=== PATIENT | female | born 1980 | race Caucasian/White ===

== ENCOUNTER 2018-07-10 15:50 | Inpatient (IN) | payer SELFPAY ==
[~2018-07-10] VITALS: Ht 160 cm; Wt 78.0 kg
[2018-07-10 16:33] LABS: BASOPHIL % 0 % (0-2); RED CELL DISTRIBUTION WIDTH 15.6 % (11.5-14.5)
[2018-07-10 16:52] LABS: PLATELET COUNT 564 x10^3mcL (130-400)
[2018-07-10 17:02] LABS: ALKALINE PHOSPHATASE 196 U/L (46-116); ALT/SGPT 7 U/L (14-59); AST/SGOT 7 U/L (15-37); BILIRUBIN TOTAL 0.5 mg/dL (0.20-1.00); CALCIUM 9.4 mg/dL (8.5-10.1); CHLORIDE SERUM 94 mmol/L (98-107); GFR1 > 60 mL/min; POTASSIUM SERUM 4.9 mmol/L (3.5-5.1); SODIUM SERUM 129 mmol/L (136-145); TOTAL PROTEIN, SERUM 7.5 g/dL (6.4-8.2)
[2018-07-10 17:04] LABS: ALBUMIN 1.7 g/dL (3.4-5.0)
[2018-07-10 17:06] LABS: GLUCOSE SERUM 585 mg/dL (74-106)
[2018-07-10 18:07] LABS: MAGNESIUM 1.4 mg/dL (1.8-2.4); PHOSPHOROUS 3.4 mg/dL (2.5-4.9)
[2018-07-10 18:15] LABS: T3 TOTAL 0.66 ng/mL
[2018-07-10 18:18] LABS: FREE T4 1.2 ng/dL (0.76-1.46); FREE THYROXINE INDEX 2.5 ug/dL (1.4-4.5); T4(THYROXINE) 6.6 ug/dL (4.7-13.3)
[2018-07-10 19:23] VITALS: BP 132/72
[2018-07-10 20:15] LABS: CALCIUM 8.5 mg/dL (8.5-10.1); CARBON DIOXIDE 20.2 mmol/L (21-32); CHLORIDE SERUM 106 mmol/L (98-107); CREATININE SERUM 0.9 mg/dL (0.6-1.0); GFR1 > 60 mL/min; GLUCOSE SERUM 350 mg/dL (74-106); MAGNESIUM 1.4 mg/dL (1.8-2.4); POTASSIUM SERUM 3.4 mmol/L (3.5-5.1); SODIUM SERUM 140 mmol/L (136-145)
[2018-07-10 23:38] VITALS: BP 137/66
[2018-07-10 23:52] VITALS: Ht 160 cm; Wt 78.0 kg
[2018-07-11 01:00] LABS: CARBON DIOXIDE 20.3 mmol/L (21-32); CHLORIDE SERUM 106 mmol/L (98-107); CREATININE SERUM 0.6 mg/dL (0.6-1.0); GFR1 > 60 mL/min; GLUCOSE SERUM 179 mg/dL (74-106); MAGNESIUM 1.3 mg/dL (1.8-2.4); POTASSIUM SERUM 3.6 mmol/L (3.5-5.1); SODIUM SERUM 137 mmol/L (136-145)
[2018-07-11 04:18] VITALS: BP 135/69
[2018-07-11 05:35] LABS: CALCIUM 8.3 mg/dL (8.5-10.1); CARBON DIOXIDE 20.2 mmol/L (21-32); CHLORIDE SERUM 109 mmol/L (98-107); CREATININE SERUM 0.8 mg/dL (0.6-1.0); GFR1 > 60 mL/min; GLUCOSE SERUM 132 mg/dL (74-106); MAGNESIUM 1.4 mg/dL (1.8-2.4); SODIUM SERUM 141 mmol/L (136-145)
[2018-07-11 05:49] LABS: BASOPHIL % 0.3 % (0-2)
[2018-07-11 05:51] LABS: PLATELET COUNT 453 x10^3mcL (130-400); RED CELL DISTRIBUTION WIDTH 15.4 % (11.5-14.5)
[2018-07-11 07:41] VITALS: BP 129/73
[2018-07-11 18:23] VITALS: BP 152/83
[2018-07-11 20:26] VITALS: BP 147/79
[2018-07-11 21:10] LABS: UA SPECIFIC GRAVITY >=1.030 (1.005-1.035); microscopic required? YES; urine erythrocyte TRACE (NEGATIVE)
[2018-07-12] VITALS (7 sets, daily range): BP systolic 134–157; BP diastolic 71–84
[2018-07-12 07:35] LABS: BASOPHIL % 0 % (0-2); PLATELET COUNT 424 x10^3mcL (130-400); RED CELL DISTRIBUTION WIDTH 15.8 % (11.5-14.5)
[2018-07-12 07:43] LABS: CALCIUM 7.8 mg/dL (8.5-10.1); CARBON DIOXIDE 18.7 mmol/L (21-32); CHLORIDE SERUM 106 mmol/L (98-107); GFR1 > 60 mL/min; GLUCOSE SERUM 229 mg/dL (74-106); MAGNESIUM 1.5 mg/dL (1.8-2.4); PHOSPHOROUS 2.5 mg/dL (2.5-4.9); POTASSIUM SERUM 4.4 mmol/L (3.5-5.1); SODIUM SERUM 136 mmol/L (136-145)
[2018-07-13 05:20] VITALS: BP 154/80
[2018-07-13 06:54] LABS: CALCIUM 8.3 mg/dL (8.5-10.1); CARBON DIOXIDE 18.9 mmol/L (21-32); CHLORIDE SERUM 108 mmol/L (98-107); GFR1 > 60 mL/min; GLUCOSE SERUM 111 mg/dL (74-106); MAGNESIUM 1.5 mg/dL (1.8-2.4); PHOSPHOROUS 2.7 mg/dL (2.5-4.9); POTASSIUM SERUM 3.9 mmol/L (3.5-5.1); SODIUM SERUM 137 mmol/L (136-145)
[2018-07-13 08:03] LABS: PLATELET COUNT 446 x10^3mcL (130-400); RED CELL DISTRIBUTION WIDTH 16.9 % (11.5-14.5)
[2018-07-13 08:04] LABS: BASOPHIL % 5.9 % (0-2)
[2018-07-13 08:20] VITALS: BP 146/78
[2018-07-13 09:34] LABS: ALKALINE PHOSPHATASE 319 U/L (46-116); ALT/SGPT 19 U/L (14-59); AST/SGOT 15 U/L (15-37); BILIRUBIN TOTAL 0.3 mg/dL (0.20-1.00); CALCIUM 8.6 mg/dL (8.5-10.1); CARBON DIOXIDE 22.8 mmol/L (21-32); CHLORIDE SERUM 105 mmol/L (98-107); CREATININE SERUM 0.9 mg/dL (0.6-1.0); GFR1 > 60 mL/min; GLUCOSE SERUM 132 mg/dL (74-106); POTASSIUM SERUM 4.7 mmol/L (3.5-5.1); SODIUM SERUM 133 mmol/L (136-145)
[2018-07-13 09:43] LABS: ALBUMIN 1.2 g/dL (3.4-5.0); TOTAL PROTEIN, SERUM 6.1 g/dL (6.4-8.2)
[2018-07-13 10:57] LABS: rbc morphology (normal/abnorm) ABNORMAL (NORMAL)
[2018-07-13 12:00] VITALS: BP 157/85
[2018-07-13 14:37] LABS: BASOPHIL % 0.2 % (0-2)
[2018-07-13 14:41] LABS: PLATELET COUNT 452 x10^3mcL (130-400); RED CELL DISTRIBUTION WIDTH 17.6 % (11.5-14.5)
[2018-07-13 17:02] VITALS: BP 168/86
[2018-07-13 20:26] VITALS: BP 174/92
[2018-07-14 05:30] VITALS: BP 144/81
[2018-07-14 08:51] VITALS: BP 154/72
[2018-07-14 12:44] VITALS: BP 143/85
[2018-07-14] MEDS ORDERED: FER300 PO (16:14)
[2018-07-14] MEDS ORDERED: BACDS PO (16:14)
[2018-07-14] MEDS ORDERED: LEVEMIR100 U/M1 SC (16:15)
[2018-07-14] MEDS ORDERED: METFORMIN HCL1000 MG PO (16:15)
[2018-07-14 17:02] VITALS: BP 161/87
[2018-07-14 17:29] VITALS: BP 153/87
[2018-07-14 17:33] VITALS: BP 153/87
== END 2018-07-14 18:12 | disposition home or self-care (01) | DRG 871 ==
LOC: ED 15:50 → IC 17:41 → DU 17:41 → EDBEDREQSVC 17:43 → IC 19:11 → DU 07-11 15:00
PROVIDERS: Emergency Medicine; Family Medicine
PROC: 30233N1 Transfusion of Nonautologous Red Blood Cells into Peripheral Vein, Percutaneous Approach (ICD-10-PCS; principal; 2018-07-13)
PROC: 0Y9D3ZZ Drainage of Left Upper Leg, Percutaneous Approach (ICD-10-PCS; 2018-07-13)
PROC: BH48ZZZ Ultrasonography of Lower Extremity (ICD-10-PCS; 2018-07-13)
DX: A41.9 Sepsis, unspecified organism (principal); E11.10 Type 2 diabetes mellitus with ketoacidosis without coma; E43 Unspecified severe protein-calorie malnutrition; L03.116 Cellulitis of left lower limb; D68.59 Other primary thrombophilia; E87.1 Hypo-osmolality and hyponatremia; D50.9 Iron deficiency anemia, unspecified; E86.0 Dehydration; E83.42 Hypomagnesemia; Z68.30 Body mass index [BMI] 30.0-30.9, adult; Z82.49 Family history of ischemic heart disease and other diseases of the circulatory system; Z80.9 Family history of malignant neoplasm, unspecified; Z91.14 Patient's other noncompliance with medication regimen; Z79.84 Long term (current) use of oral hypoglycemic drugs
CPT/HCPCS: 36600; 82962; 83880; 84439; C1729; J0295; J1815; J1885; J2001; J2405; J2543; J3370; J3475; J3490; J7030; J7050; P9016; Q0092; Q0163

== ENCOUNTER 2018-07-31 22:47 | Inpatient (IN) | payer SELFPAY ==
[~2018-07-31] VITALS: Ht 160 cm; Wt 73.0 kg
[~2018-07-31 22:47] MED LIST: BACDS PO; FER300 PO; LEVEMIR100 U/M1 SC; METFORMIN HCL1000 MG PO
[2018-07-31 22:58] VITALS: Ht 160 cm; Wt 73.0 kg
[2018-08-01 00:01] LABS: BASOPHIL % 0.4 % (0-2)
[2018-08-01 00:02] LABS: RED CELL DISTRIBUTION WIDTH 17.6 % (11.5-14.5)
[2018-08-01 00:03] LABS: PLATELET COUNT 499 x10^3mcL (130-400)
[2018-08-01 00:07] LABS: BILIRUBIN TOTAL 0.2 mg/dL (0.20-1.00); CALCIUM 8.9 mg/dL (8.5-10.1); CARBON DIOXIDE 16.9 mmol/L (21-32); CREATININE SERUM 2.7 mg/dL (0.6-1.0); TOTAL PROTEIN, SERUM 8.1 g/dL (6.4-8.2)
[2018-08-01 00:10] LABS: ALBUMIN 2.7 g/dL (3.4-5.0)
[2018-08-01 00:14] LABS: POTASSIUM SERUM 6.3 mmol/L (3.5-5.1)
[2018-08-01] MEDS ORDERED: ASPIR 8181 MG PO (01:12)
[2018-08-01] MEDS ORDERED: HYDROCHLOROTHIA25 MG PO (01:12)
[2018-08-01] MEDS ORDERED: ZESTRIL5 MG PO (01:12)
[2018-08-01] MEDS ORDERED: GLIPIZIDE5 M3 PO (01:13)
[2018-08-01] MEDS ORDERED: METFORMIN HCL850 MG PO (01:14)
[2018-08-01] MEDS ORDERED: LIPI10 PO (01:14)
[2018-08-01 02:18] LABS: MAGNESIUM 1.3 mg/dL (1.8-2.4); PHOSPHOROUS 5.1 mg/dL (2.5-4.9)
[2018-08-01 02:24] LABS: CHOLESTEROL/HDL RATIO 4.8
[2018-08-01 02:31] LABS: T3 TOTAL 1.06 ng/mL
[2018-08-01 02:43] LABS: FREE T4 1.08 ng/dL (0.76-1.46); FREE THYROXINE INDEX 2.2 ug/dL (1.4-4.5); T4(THYROXINE) 7.3 ug/dL (4.7-13.3)
[2018-08-01 03:16] VITALS: BP 120/63
[2018-08-01 06:40] LABS: BASOPHIL % 0.4 % (0-2); PLATELET COUNT 397 x10^3mcL (130-400)
[2018-08-01 07:03] LABS: CALCIUM 8.4 mg/dL (8.5-10.1); CARBON DIOXIDE 16.4 mmol/L (21-32); CREATININE SERUM 2.5 mg/dL (0.6-1.0); MAGNESIUM 1.3 mg/dL (1.8-2.4); PHOSPHOROUS 4.5 mg/dL (2.5-4.9)
[2018-08-01 07:11] LABS: POTASSIUM SERUM 6.1 mmol/L (3.5-5.1)
[2018-08-01 10:22] VITALS: BP 112/63
[2018-08-01 12:28] LABS: CALCIUM 8.7 mg/dL (8.5-10.1); CARBON DIOXIDE 20.5 mmol/L (21-32); CREATININE SERUM 1.9 mg/dL (0.6-1.0)
[2018-08-01 13:11] LABS: POTASSIUM SERUM 6.8 mmol/L (3.5-5.1)
[2018-08-01 14:11] VITALS: BP 155/109
[2018-08-01 14:16] VITALS: BP 112/64
[2018-08-01 17:10] VITALS: BP 137/71
[2018-08-01 18:03] LABS: CALCIUM 8.7 mg/dL (8.5-10.1); CARBON DIOXIDE 18.9 mmol/L (21-32); CREATININE SERUM 1.6 mg/dL (0.6-1.0); POTASSIUM SERUM 5.5 mmol/L (3.5-5.1)
[2018-08-01 20:35] VITALS: BP 107/55
[2018-08-02 05:03] VITALS: BP 132/75
[2018-08-02 06:15] LABS: BASOPHIL % 0.5 % (0-2)
[2018-08-02 06:48] LABS: PLATELET COUNT 453 x10^3mcL (130-400); RED CELL DISTRIBUTION WIDTH 17.9 % (11.5-14.5)
[2018-08-02 06:54] LABS: CALCIUM 8.9 mg/dL (8.5-10.1); CARBON DIOXIDE 18.5 mmol/L (21-32); CREATININE SERUM 1.2 mg/dL (0.6-1.0); MAGNESIUM 1.8 mg/dL (1.8-2.4)
[2018-08-02 07:14] LABS: POTASSIUM SERUM 5.6 mmol/L (3.5-5.1)
[2018-08-02 07:26] LABS: UA SPECIFIC GRAVITY 1.015 (1.005-1.035); microscopic required? YES; urine erythrocyte NEGATIVE (NEGATIVE)
[2018-08-02 07:36] LABS: CREATININE UR 33.6 mg/dL
[2018-08-02 07:41] LABS: AMPHETAMINE QUAL UR NONE DETECTED (See below)
[2018-08-02 08:09] LABS: rbc morphology (normal/abnorm) ABNORMAL (NORMAL)
[2018-08-02 09:29] VITALS: BP 129/64
[2018-08-02 13:36] VITALS: BP 129/73
[2018-08-02 15:36] LABS: RED BLOOD CELLS 3.22 M/mm3 (4.10-5.10)
[2018-08-02 15:50] LABS: IRON 31 ug/dL (50-170); TOTAL IRON BINDING CAPACITY 205 ug/dL (250-450)
[2018-08-02 16:35] LABS: CALCIUM 8.7 mg/dL (8.5-10.1); CARBON DIOXIDE 21.5 mmol/L (21-32); CREATININE SERUM 1.2 mg/dL (0.6-1.0); MAGNESIUM 1.5 mg/dL (1.8-2.4); PHOSPHOROUS 3.8 mg/dL (2.5-4.9); POTASSIUM SERUM 4.6 mmol/L (3.5-5.1)
[2018-08-02 17:30] VITALS: BP 127/72
[2018-08-02 20:23] VITALS: BP 121/62
[2018-08-03 05:46] VITALS: BP 137/74
[2018-08-03 06:57] LABS: CALCIUM 8.6 mg/dL (8.5-10.1); CHLORIDE SERUM 106 mmol/L (98-107); GFR1 > 60 mL/min; GLUCOSE SERUM 151 mg/dL (74-106); MAGNESIUM 1.4 mg/dL (1.8-2.4); PHOSPHOROUS 3.6 mg/dL (2.5-4.9); POTASSIUM SERUM 4.6 mmol/L (3.5-5.1); SODIUM SERUM 136 mmol/L (136-145)
[2018-08-03 07:46] LABS: BASOPHIL % 0.6 % (0-2)
[2018-08-03 07:50] LABS: PLATELET COUNT 454 x10^3mcL (130-400); rbc morphology (normal/abnorm) ABNORMAL (NORMAL)
[2018-08-03 08:57] VITALS: BP 137/75
[2018-08-03 14:22] VITALS: BP 131/74
[2018-08-03 16:37] VITALS: BP 132/74
[2018-08-03 20:39] VITALS: BP 120/68
[2018-08-04 06:09] VITALS: BP 137/73
[2018-08-04 06:37] LABS: BASOPHIL % 0.4 % (0-2)
[2018-08-04 06:42] LABS: GFR1 > 60 mL/min
[2018-08-04 06:44] LABS: CALCIUM 8.7 mg/dL (8.5-10.1); CARBON DIOXIDE 17.9 mmol/L (21-32); CHLORIDE SERUM 107 mmol/L (98-107); CREATININE SERUM 0.9 mg/dL (0.6-1.0); GLUCOSE SERUM 137 mg/dL (74-106); POTASSIUM SERUM 4.8 mmol/L (3.5-5.1); SODIUM SERUM 137 mmol/L (136-145)
[2018-08-04 07:42] LABS: PLATELET COUNT 457 x10^3mcL (130-400); RED CELL DISTRIBUTION WIDTH 16.7 % (11.5-14.5)
[2018-08-04 08:58] VITALS: BP 135/73
[2018-08-04 12:18] VITALS: BP 135/73
[2018-08-04 15:38] VITALS: BP 135/79
[2018-08-04 20:00] VITALS: BP 132/70
[2018-08-05 05:40] VITALS: BP 145/83
[2018-08-05 06:31] LABS: BASOPHIL % 0.4 % (0-2)
[2018-08-05 06:53] LABS: PLATELET COUNT 426 x10^3mcL (130-400); RED CELL DISTRIBUTION WIDTH 18.4 % (11.5-14.5)
[2018-08-05 06:54] LABS: CALCIUM 8.5 mg/dL (8.5-10.1); CHLORIDE SERUM 108 mmol/L (98-107); CREATININE SERUM 0.8 mg/dL (0.6-1.0); GFR1 > 60 mL/min; GLUCOSE SERUM 99 mg/dL (74-106); MAGNESIUM 1.3 mg/dL (1.8-2.4); POTASSIUM SERUM 4.7 mmol/L (3.5-5.1); SODIUM SERUM 138 mmol/L (136-145)
[2018-08-05 08:36] VITALS: BP 147/70
[2018-08-05 12:00] VITALS: BP 152/77
[2018-08-05 16:38] VITALS: BP 170/85
[2018-08-05 20:40] VITALS: BP 159/84
[2018-08-06 05:56] VITALS: BP 170/90
[2018-08-06 06:25] VITALS: BP 154/80
[2018-08-06 07:11] LABS: CARBON DIOXIDE 23.6 mmol/L (21-32); CHLORIDE SERUM 105 mmol/L (98-107); CREATININE SERUM 0.7 mg/dL (0.6-1.0); GFR1 > 60 mL/min; GLUCOSE SERUM 137 mg/dL (74-106); MAGNESIUM 1.9 mg/dL (1.8-2.4); SODIUM SERUM 137 mmol/L (136-145)
[2018-08-06 07:33] LABS: BASOPHIL % 0.3 % (0-2); PLATELET COUNT 447 x10^3mcL (130-400); RED CELL DISTRIBUTION WIDTH 18.5 % (11.5-14.5)
[2018-08-06 08:25] VITALS: BP 150/84
[2018-08-06 13:03] VITALS: BP 160/80
[2018-08-06 17:43] VITALS: BP 161/79
[2018-08-06 21:02] VITALS: BP 147/74
[2018-08-07 05:30] VITALS: BP 146/79
[2018-08-07 06:57] LABS: BASOPHIL % 0.3 % (0-2)
[2018-08-07 06:58] LABS: PLATELET COUNT 442 x10^3mcL (130-400); RED CELL DISTRIBUTION WIDTH 19.7 % (11.5-14.5)
[2018-08-07 07:21] LABS: CALCIUM 8.8 mg/dL (8.5-10.1); CARBON DIOXIDE 24.6 mmol/L (21-32); CHLORIDE SERUM 104 mmol/L (98-107); CREATININE SERUM 0.8 mg/dL (0.6-1.0); GFR1 > 60 mL/min; GLUCOSE SERUM 112 mg/dL (74-106); POTASSIUM SERUM 3.7 mmol/L (3.5-5.1); SODIUM SERUM 138 mmol/L (136-145)
[2018-08-07 08:27] VITALS: BP 147/86
[2018-08-07 13:21] VITALS: BP 128/81
[2018-08-07 16:26] VITALS: BP 143/75
[2018-08-07 22:16] VITALS: BP 137/80
[2018-08-08 05:50] VITALS: BP 158/85
[2018-08-08 06:36] LABS: CALCIUM 8.7 mg/dL (8.5-10.1); CHLORIDE SERUM 102 mmol/L (98-107); CREATININE SERUM 0.8 mg/dL (0.6-1.0); GFR1 > 60 mL/min; GLUCOSE SERUM 187 mg/dL (74-106); POTASSIUM SERUM 3.8 mmol/L (3.5-5.1); SODIUM SERUM 134 mmol/L (136-145)
[2018-08-08 06:44] LABS: BASOPHIL % 0.4 % (0-2)
[2018-08-08 07:02] LABS: PLATELET COUNT 410 x10^3mcL (130-400); RED CELL DISTRIBUTION WIDTH 19.2 % (11.5-14.5)
[2018-08-08 09:49] VITALS: BP 156/91
[2018-08-08 13:52] VITALS: BP 151/92
[2018-08-08 17:28] VITALS: BP 126/71
[2018-08-08 21:04] VITALS: BP 106/67
[2018-08-09 05:39] VITALS: BP 134/81
[2018-08-09 09:45] VITALS: BP 100/61
[2018-08-09 12:24] VITALS: BP 136/60
[2018-08-09 15:15] VITALS: BP 136/60
[2018-08-09] MEDS ORDERED: CLINDAMYCIN HC150 MG PO (15:32)
[2018-08-09] MEDS ORDERED: ACETAMINOPHEN-H1 TA1 PO (15:33)
[2018-08-09] MEDS ORDERED: GLUCOTROL5 MG PO (15:46)
[2018-08-09] MEDS ORDERED: METFORMIN HCL1000 MG PO (15:46)
[2018-08-09 16:16] VITALS: BP 136/60
== END 2018-08-09 17:22 | disposition home or self-care (01) | DRG 853 ==
LOC: ED 22:47 → DU 08-01 00:38
PROVIDERS: Emergency Medicine; Internal Medicine
PROC: BH48ZZZ Ultrasonography of Lower Extremity (ICD-10-PCS; 2018-08-01)
PROC: 0J9M3ZZ Drainage of Left Upper Leg Subcutaneous Tissue and Fascia, Percutaneous Approach (ICD-10-PCS; 2018-08-01)
PROC: 0J9M0ZZ Drainage of Left Upper Leg Subcutaneous Tissue and Fascia, Open Approach (ICD-10-PCS; 2018-08-03)
PROC: 0J9M3ZZ Drainage of Left Upper Leg Subcutaneous Tissue and Fascia, Percutaneous Approach (ICD-10-PCS; 2018-08-03)
PROC: 30233N1 Transfusion of Nonautologous Red Blood Cells into Peripheral Vein, Percutaneous Approach (ICD-10-PCS; principal; 2018-08-04)
DX: A41.9 Sepsis, unspecified organism (principal); G93.41 Metabolic encephalopathy; N17.0 Acute kidney failure with tubular necrosis; E43 Unspecified severe protein-calorie malnutrition; L02.416 Cutaneous abscess of left lower limb; L03.116 Cellulitis of left lower limb; E87.1 Hypo-osmolality and hyponatremia; E87.5 Hyperkalemia; E83.42 Hypomagnesemia; E02 Subclinical iodine-deficiency hypothyroidism; D63.8 Anemia in other chronic diseases classified elsewhere; D50.9 Iron deficiency anemia, unspecified; E86.1 Hypovolemia; E11.65 Type 2 diabetes mellitus with hyperglycemia; E78.5 Hyperlipidemia, unspecified; I10 Essential (primary) hypertension; E11.9 Type 2 diabetes mellitus without complications; Z79.84 Long term (current) use of oral hypoglycemic drugs; Z79.899 Other long term (current) drug therapy; Z80.9 Family history of malignant neoplasm, unspecified; Z82.49 Family history of ischemic heart disease and other diseases of the circulatory system; Z68.28 Body mass index [BMI] 28.0-28.9, adult
CPT/HCPCS: 82962; 83880; 84439; 87046; 87046-59; 94150; A6242; C1729; J1170; J1815; J2001; J2250; J2270; J2405; J2543; J2704; J3010; J3475; J3490; J7030; J7050; P9016; Q0092

== ENCOUNTER 2018-09-02 15:18 | Emergency (ER) | payer SELFPAY ==
[~2018-09-02] VITALS: Ht 160 cm; Wt 74.4 kg
[~2018-09-02 15:18] MED LIST changes: +ACETAMINOPHEN-H1 TA1 PO; +ASPIR 8181 MG PO; +CLINDAMYCIN HC150 MG PO; +GLIPIZIDE5 M3 PO; +GLUCOTROL5 MG PO; +HYDROCHLOROTHIA25 MG PO; +LIPI10 PO; +METFORMIN HCL850 MG PO; +ZESTRIL5 MG PO
[2018-09-02 15:48] VITALS: BP 133/87; Ht 160 cm; Wt 74.4 kg
== END 2018-09-02 17:58 | disposition home or self-care (01) ==
LOC: ED 15:18
DX: S71.102D Unspecified open wound, left thigh, subsequent encounter (principal); I10 Essential (primary) hypertension; E11.9 Type 2 diabetes mellitus without complications; D25.9 Leiomyoma of uterus, unspecified; X58.XXXD Exposure to other specified factors, subsequent encounter